=== PATIENT | male | born 1990 | race Caucasian/White ===

== ENCOUNTER → 2020-10-24 08:19 | Outpatient (CLI) | payer OTHER, SELFPAY ==
[2020-10-24 20:31] LABS: SARS-CoV-2 RNA PCR Negative
== END ==
PROVIDERS: PCP Internal Medicine; Visit Provider Internal Medicine
DX: Z20.822 Contact with and (suspected) exposure to COVID-19 (principal)
CPT/HCPCS: C9803; U0003; U0005

== ENCOUNTER 2025-05-09 12:04 | Emergency (ER) | payer OTHER, SELFPAY ==
--- NOTE | ~2025-05-09 | XR_ITS ---
EXAMINATION: XR chest 2V 05/09/2025 13:04 INDICATION: Chest pain. Shortness of breath TECHNIQUE:PA upright frontal image of the chest was obtained COMPARISON: None available FINDINGS: Heart is not enlarged. No pneumothorax. No pleural effusion. No free air the diaphragm. Small opacities in the lower lungs. IMPRESSION: 1. Small opacities in the mid and lower lungs which represents atelectasis/scarring or infiltrates. If symptoms persist or worsen, consider a short-term follow-up study or additional imaging for further assessment. Reviewed, dictated and finalized at location [facility]. 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 Small opacities in the mid and lower lungs which represents atelectasis/scar ring or infiltrates. If symptoms persist or worsen, consider a short-term follow-up study or additio nal imaging for further assessment.
--- NOTE | 2025-05-09 12:05 | ECG_ITS ---
Test Date: 2025-05-09 12:12:14 Measurements Intervals [place]son Rate: 78 P: 43 TX: 168 QRS: 53 QRSD: 76 T: 52 QT: 350 QTc: 399 Interpretive Statements NORMAL SINUS RHYTHM No previous ECG available for comparison Electronically Signed On 05-09-2025 12:26:46 SUPERVISORY EXAMINER by Juan C Matson M.D.
[2025-05-09 12:14] VITALS: PULSE 81; RESP 16; TEMP 36.7; O2SAT 100
[2025-05-09 12:16] VITALS: BP 131/69
--- NOTE | 2025-05-09 13:10 | ED_ITS ---
HPI - Chest Pain General Chief Complaint: Chest Pain Stated Complaint: left sided CP x 3 days Time Seen by Provider: 05/09/25 13:00 Source: patient Mode of arrival: ambulatory Limitations: no limitations History of Present Illness HPI narrative: This is a 35-year-old male no significant past medical history presents to the ED for left-sided chest pain with cough and congestion. Patient states that for the past 3 days, he has been having left-sided sharp chest pain that was worse with arm movements. He states that yesterday, he began to cough up green mucus. He states that his kids have had similar symptoms over the past few weeks. He was given a prescription for amoxicillin prophylactically by his PCP to take if he began to have symptoms so he started taking that last night. All states that today he began to have review of chest pressure which was new. No known cardiac history. No known family cardiac history. Denies fevers, chills, nausea vomiting. Related Data Allergies Allergy/AdvReac Type Severity Reaction Status Date / Time No Known Allergies Allergy Verified 05/09/25 13:18 Review of Systems 2 Review of Systems: Gen.: Denies fevers or chills Eyes: Denies eye pain or visual change ENT: As per HPI Respiratory: As per HPI CV: As per HPI GI: Denies abdominal pain nausea, emesis or diarrhea denies burning, urgency, frequency or hematuria Musculoskeletal: Denies back pain or muscle pain Neuro: Denies numbness, tingling, weakness or focal weakness Skin: Denies rash Except as documented, all other systems reviewed and negative Exam 2 Narrative: APPEARANCE: No acute distress, nontoxic, resting in bed EYES: EOMI HEENT: Normocephalic, atraumatic, OMM RESPIRATORY: No respiratory distress Clear to auscultation bilaterally with no rhonchi wheezing or rales. CARDIOVASCULAR: Regular rate and rhythm without murmurs rubs or gallops. ABDOMINAL: Soft, nontender, nondistended, no rebound or guarding MUSCULOSKELETAl: Moves all extremities. No clubbing, cyanosis or edema. NEURO: Awake and alert. Following commands, speech normal, no focal deficits SKIN:: Warm, dry. No rashes lesions or abrasions PSYCHIATRIC: Normal affect/mood, Course Vital Signs Vital signs: Vital Signs Temperature 98.0 F 05/09/25 12:14 Pulse Rate 81 05/09/25 12:14 Respiratory Rate 16 05/09/25 12:14 Pulse Oximetry 100 05/09/25 12:14 Oxygen Delivery Room Air 05/09/25 12:14 Temperature 98.0 F 05/09/25 12:14 Pulse Rate 81 05/09/25 12:14 Respiratory Rate 16 05/09/25 12:14 Blood Pressure 131/69 05/09/25 12:16 Pulse Oximetry 100 05/09/25 12:14 Oxygen Delivery Room Air 05/09/25 12:14 MDM - Chest Pain MDM Narrative Medical decision making narrative: 35-year-old male Presenting for cough and chest pain. On initial evaluation patient was in no acute distress afebrile, hemodynamic stable. Differentials include but are not limited to: ACS, PE, PNA, bronchitis, costochondritis, pleurisy, viral syndrome, GERD Notable exam findings: Heart and lungs clear. Chest wall nontender to palpation. Notable lab findings: CBC and CMP without significant abnormalities. COVID/flu/RSV negative. Notable imaging findings: Chest x-ray showed opacity in the mid and lower left lung which given the clinical context could be consistent with pneumonia Patient likely has pneumonia causing his symptoms. He was given a prescription for doxycycline. He was educated on Tylenol and ibuprofen use. Low suspicion for ACS at this time given negative troponin. Patient was advised follow-up with his PCP in the next week for re-evaluation. Patient was agreeable to this plan. Given strict return precautions. Medical Records Data Attestation: I reviewed the patient's medical records. Lab Data Attestation: I reviewed the patient's lab results. 05/09/25 13:27 05/09/25 13:27 Labs: Lab Results 05/09/25 Range/Units 13:27 WBC 6.6 (4.5-10.0) K/mm3 RBC 5.60 (4.6-6.20) M/mm3 Hgb 16.0 (14.0-18.0) g/dL Hct 47.3 (42.0-52.0) % MCV 84.5 (80-100) fl MCH 28.6 (26-34) pg MCHC 33.8 (32-36) g/dl RDW 12.7 (11.5-14.5) % Plt Count 190 (150-375) k/mm3 MPV 10.3 (7.4-10.4) fl Immature Gran % (Auto) 0.5 (0-0.5) % Neut % (Auto) 57.5 (45.5-73.1) % Lymph % (Auto) 26.5 (18.3-44.2) % [place] % (Auto) 11.1 H (2.6-8.5) % Eos % (Auto) 3.5 (0-4.4) % Baso % (Auto) 0.9 (0.2-1.2) % Lymph # (Auto) 1.76 (0.9-3.2) K/mm3 [place] # (Auto) 0.7 H (0.1-0.6) K/mm3 Eos # (Auto) 0.2 (0-0.3) K/mm3 Baso # (Auto) 0.1 (0.0-0.1) K/mm3 Abs Immat Gran (auto) 0.03 (0.00-0.031) K/mm3 Absolute Neuts (auto) 3.8 (1.3-6.7) K/mm3 Absolute Nucleated RBC 0.000 (0.0-0.012) K/mm3 Nucleated RBC % 0.0 (0.0-0.2) % PT 12.8 (11.1-14.7) Seconds INR 0.9 APTT 26.2 (22.3-36.8) Seconds Sodium 134 L (137-145) mmol/L Potassium 4.2 (3.4-5.0) mmol/L Chloride 102 (98-107) mmol/L Carbon Dioxide 26 (22-30) mmol/L Anion Gap 6 (4-12) mmol/L BUN 13 (9-20) mg/dL Creatinine 0.95 (0.7-1.3) mg/dL Estim Creat Clear Calc Not Reportable Estimated GFR > 60 (59 - ) Glucose 94 (65-110) mg/dL Calcium 8.8 (8.4-10.2) mg/dL Total Bilirubin 0.5 (0.2-1.3) mg/dL AST 35 (17-59) U/L ALT 56 H (6-50) U/L Alkaline Phosphatase 47 (38-126) U/L Troponin I < 0.012 (0.000-0.034) ng/mL Total Protein 7.5 (6.3-8.2) g/dL Albumin 4.4 (3.5-5.1) g/dL Lipase 63 (23-300) U/L Influenza A (RT-PCR) Pending Influenza B (RT-PCR) Pending RSV (RT-PCR) Pending SARS-CoV-2 RNA (RT-PCR) Pending Imaging Data Radiologist's impression: Impressions Chest X-Ray 05/09/25 13:18 IMPRESSION: 1. Small opacities in the mid and lower lungs which represents atelectasis/scarring or infiltrates. If symptoms persist or worsen, consider a short-term follow-up study or additional imaging for further assessment. ECG Data EKG #1: Attestation: I personally reviewed and interpreted this ECG as follows: ECG completion date: 05/09/25 ECG completion time: 12:12 Interpretation: Normal sinus rhythm, normal axis, normal intervals, no acute ST or T-wave changes Discharge Plan Discharge Clinical Impression: Pleurisy Community acquired pneumonia Qualifiers: Laterality: left Lung location: upper lobe of lung Qualified Code(s): J18.9 - Pneumonia, unspecified organism Patient Disposition: Home Condition: Stable Instructions: Antibiotic Form, Community Acquired Pneumonia (ED) Additional Instructions: Your x-ray was consistent with a pneumonia. Your given a prescription for doxycycline, take this as prescribed. Follow-up with the PCP in the next week for re-evaluation. Return to the ED for any new or worsening symptoms. For pain, discomfort or temperature greater than or equal to 100.8 ?F please alternate the following 2 medications as needed. First medication- acetaminophen/Tylenol- 1000mg every 6-8 hours as needed for above indications. Second medication- ibuprofen/Motrin-600mg every 6-8 hours as needed for above indication. Patient Language: Telugu Prescriptions: New doxycycline hyclate 100 mg capsule 100 mg PO BID 5 Days Qty: 10 0RF Follow-up/Referrals: Aden,Jj Crowe MD [Primary Care Provider]
[2025-05-09 13:41] LABS: Hematocrit 47.3 % (42.0-52.0); Hemoglobin 16.0 g/dL (14.0-18.0); Immature Granulocyte Percent A 0.5 % (0-0.5); Lymphocytes Absolute Auto 1.76 K/mm3 (0.9-3.2); Mean Corpuscular HGB Conc 33.8 g/dl (32-36); Mean Corpuscular Hemoglobin 28.6 pg (26-34); Mean Corpuscular Volume 84.5 fl (80-100); Nucleated Red Blood Cells Absolute Auto 0.000 K/mm3 (0.0-0.012); Nucleated Red Blood Cells Perc 0.0 % (0.0-0.2); Platelet Count Result 190 k/mm3 (150-375); Red Blood Count 5.60 M/mm3 (4.6-6.20); White Blood Count 6.6 K/mm3 (4.5-10.0)
[2025-05-09 13:53] LABS: INR 0.9; Prothrombin Time 12.8 Seconds (11.1-14.7)
[2025-05-09 13:54] LABS: Partial Thromboplastin Time 26.2 Seconds (22.3-36.8)
[2025-05-09] MEDS: ASPIRIN 81 MG CHEWABLE TABLET 324 MG PO (13:55)
[2025-05-09 14:15] LABS: Alanine Aminotransferase 56 U/L (6-50); Albumin Level 4.4 g/dL (3.5-5.1); Alkaline Phosphatase 47 U/L (38-126); Anion Gap 6 mmol/L (4-12); Aspartate Amino Transferase 35 U/L (17-59); Bilirubin,Total 0.5 mg/dL (0.2-1.3); Blood Urea Nitrogen 13 mg/dL (9-20); Calcium 8.8 mg/dL (8.4-10.2); Carbon Dioxide 26 mmol/L (22-30); Chloride 102 mmol/L (98-107); Estimated Glomerular Filt Rate > 60; Glucose 94 mg/dL (65-110); Lipase 63 U/L (23-300); Potassium 4.2 mmol/L (3.4-5.0); Sodium 134 mmol/L (137-145); Total Protein 7.5 g/dL (6.3-8.2)
[2025-05-09 14:22] LABS: Troponin I < 0.012 ng/mL (0.000-0.034)
[2025-05-09 14:26] LABS: Influenza A QL RT-PCR Negative (Negative); Influenza B QL RT-PCR Negative (Negative); RSV RNA, RT-PCR Negative (Negative); SARS-CoV-2 RNA PCR Negative (Negative)
== END 2025-05-09 14:48 | disposition home or self-care (01) ==
PROVIDERS: Emergency Medicine; Emergency Provider Student in an Organized Health Care Education/Training Program; PCP Internal Medicine
DX: J18.9 Pneumonia, unspecified organism (principal); R09.1 Pleurisy
CPT/HCPCS: 36415; 71046; 80053; 83690; 84484; 85025; 85610; 85730; 87637; 93005; 99284; A9270